=== PATIENT | female | born 1990 | race Caucasian/White ===

== ENCOUNTER 2017-10-08 20:23 | Inpatient (IN) | payer OTHER ==
[~2017-10-08] VITALS: Ht 149.9 cm; Wt 71.7 kg
[2017-10-08] MEDS ORDERED: SYNTHROID50 MCG PO (22:03)
[2017-10-08] MEDS ORDERED: PRENATAL TABLE1 EAC1 PO (22:03)
[2017-10-12] MEDS ORDERED: KEFLEX500 MG PO (12:25)
== END 2017-10-12 14:01 | disposition home or self-care (01) | DRG 781 ==
LOC: OBS/DEL 20:23 → LDR 22:49 → OB/GYN 10-09 20:26
PROC: BY4CZZZ Ultrasonography of Second Trimester, Single Fetus (ICD-10-PCS; principal; 2017-10-08)
PROC: BT43ZZZ Ultrasonography of Bilateral Kidneys (ICD-10-PCS; 2017-10-08)
PROC: BW40ZZZ Ultrasonography of Abdomen (ICD-10-PCS; 2017-10-08)
PROC: 4A1HXCZ Monitoring of Products of Conception, Cardiac Rate, External Approach (ICD-10-PCS; 2017-10-08)
DX: O23.32 Infections of other parts of urinary tract in pregnancy, second trimester (principal); O99.612 Diseases of the digestive system complicating pregnancy, second trimester; O99.282 Endocrine, nutritional and metabolic diseases complicating pregnancy, second trimester; E03.8 Other specified hypothyroidism; Z3A.27 27 weeks gestation of pregnancy

== ENCOUNTER 2017-11-14 09:37 | Inpatient (IN) | payer OTHER ==
[~2017-11-14] VITALS: Ht 149.9 cm; Wt 1.4 kg
[~2017-11-14 09:37] MED LIST: KEFLEX500 MG PO; PRENATAL TABLE1 EAC1 PO; SYNTHROID50 MCG PO
[2017-11-14] MEDS ORDERED: FERROUS SULFAT325 MG PO (13:53)
== END 2017-11-26 13:40 | disposition home or self-care (01) | DRG 766 ==
LOC: OB/GYN 09:37 → LDR 09:37 → OB/GYN 22:18
PROVIDERS: Obstetrics & Gynecology
PROC: BY4FZZZ Ultrasonography of Third Trimester, Single Fetus (ICD-10-PCS; 2017-11-14)
PROC: 4A1HXCZ Monitoring of Products of Conception, Cardiac Rate, External Approach (ICD-10-PCS; 2017-11-14)
PROC: 10D00Z1 Extraction of Products of Conception, Low, Open Approach (ICD-10-PCS; principal; 2017-11-23 11:15)
DX: O14.14 Severe pre-eclampsia complicating childbirth (principal); O64.8XX0 Obstructed labor due to other malposition and malpresentation, not applicable or unspecified; Z3A.33 33 weeks gestation of pregnancy; Z37.0 Single live birth

== ENCOUNTER → 2018-02-13 09:32 | Outpatient (CLI) | payer OTHER ==
[~2018-02-13 09:32] MED LIST changes: +FERROUS SULFAT325 MG PO
== END | disposition home or self-care (01) ==
LOC: EKG 09:32
DX: I10 Essential (primary) hypertension (principal)

== ENCOUNTER 2018-03-15 05:35 | Day surgery (SDC) | payer OTHER ==
[2018-03-15] MEDS ORDERED: MIRALAX17 GM PO (08:40)
[2018-03-15] MEDS ORDERED: ZOFRAN ODT4 MG PO (08:41)
[2018-03-15] MEDS ORDERED: TRAMADOL HCL50 MG PO (08:42)
== END 2018-03-15 11:15 | disposition home or self-care (01) ==
LOC: CIR.AMB 05:35
DX: K80.10 Calculus of gallbladder with chronic cholecystitis without obstruction (principal)